=== PATIENT | male | born 1965 | race Caucasian/White ===

== ENCOUNTER → 2023-06-24 15:26 | Outpatient (REF) | payer OTHER, SELFPAY | LOC: HWRAD 15:26 | PROVIDERS: ATTENDING PHYSICIAN Internal Medicine Hematology & Oncology; FAMILY PHYSICIAN Family Medicine | DX: C83.32 Diffuse large B-cell lymphoma, intrathoracic lymph nodes (principal) | CPT/HCPCS: 71250 ==

== ENCOUNTER → 2024-01-14 15:18 | Outpatient (REF) | payer OTHER, SELFPAY | LOC: HWRCS 15:18 | PROVIDERS: ATTENDING PHYSICIAN Internal Medicine Cardiovascular Disease; FAMILY PHYSICIAN Family Medicine | DX: I25.810 Atherosclerosis of coronary artery bypass graft(s) without angina pectoris (principal) | CPT/HCPCS: 93306 ==

== ENCOUNTER → 2024-01-21 08:05 | Outpatient (REF) | payer OTHER, SELFPAY | LOC: RCS 08:05 | PROVIDERS: ATTENDING PHYSICIAN Internal Medicine Cardiovascular Disease; FAMILY PHYSICIAN Family Medicine | DX: I25.810 Atherosclerosis of coronary artery bypass graft(s) without angina pectoris (principal) | CPT/HCPCS: 93017; 93350 ==

== ENCOUNTER → 2024-02-14 07:42 | Outpatient (REF) | payer OTHER, SELFPAY | LOC: RAD 07:42 | PROVIDERS: ATTENDING PHYSICIAN Family Medicine | DX: R91.1 Solitary pulmonary nodule (principal); R05.3 Chronic cough | CPT/HCPCS: 71260; Q9967 ==

== ENCOUNTER → 2024-05-13 07:19 | Outpatient (REF) | payer OTHER, SELFPAY | LOC: RAD 07:19 | PROVIDERS: FAMILY PHYSICIAN Family Medicine | DX: C83.32 Diffuse large B-cell lymphoma, intrathoracic lymph nodes (principal) | CPT/HCPCS: 71260; Q9967 ==

== ENCOUNTER → 2024-06-30 07:46 | Outpatient (REF) | payer OTHER, SELFPAY | LOC: RAD 07:46 | PROVIDERS: ATTENDING PHYSICIAN Physician Assistant Medical; FAMILY PHYSICIAN Family Medicine; REFERRING PHYSICIAN Student in an Organized Health Care Education/Training Program | DX: C83.32 Diffuse large B-cell lymphoma, intrathoracic lymph nodes (principal) | CPT/HCPCS: 71260; Q9967 ==

== ENCOUNTER → 2025-03-01 11:26 | Outpatient (REF) | payer OTHER, SELFPAY | LOC: HWRAD 11:26 | PROVIDERS: ATTENDING PHYSICIAN Family Medicine | DX: R05.9 Cough, unspecified (principal) | CPT/HCPCS: 71046 ==